=== PATIENT | female | born 1985 | race Caucasian/White ===

== ENCOUNTER 2018-07-05 00:04 | Inpatient (IN) | payer BC, SELFPAY ==
[~2018-07-05 00:04] MED LIST: Acetaminophen 325 MG Tab PO PRN
[2018-07-05] MEDS ORDERED: Nalbuphine 10 MG/1 ML Vial IM PRN (00:09)
[2018-07-05] MEDS ORDERED: Nalbuphine 10 MG/1 ML Vial IV PRN (00:09)
[2018-07-05] MEDS ORDERED: fentaNYL 100 MCG/2 ML SDV IVPUSH PRN (00:09)
[2018-07-05] MEDS ORDERED: Sodium Chloride 0.9% 10 ML Syringe FLUSH PRN (00:10)
[2018-07-05] MEDS ORDERED: Carboprost Tromethamine 250 MCG/1 ML Amp IM PRN (00:11)
[2018-07-05] MEDS ORDERED: hydrOXYzine HCl 25 MG Tab PO PRN (00:11)
[2018-07-05] MEDS ORDERED: Acetaminophen 325 MG Tab PO PRN (00:11)
[2018-07-05] MEDS ORDERED: Methylergonovine 0.2 MG/1 ML Amp IM PRN (00:12)
[2018-07-05] MEDS ORDERED: Misoprostol 400 MCG (4 X 100 MCG TAB) RECTAL PRN (00:12)
[2018-07-05] MEDS ORDERED: Lidocaine 1% 30 ML SDV INJECT PRN (00:12)
[2018-07-05] MEDS ORDERED: Tranexamic Acid 1,000 MG in Sodium Chloride 0.9% 100 ML IV PRN (00:13)
[2018-07-05] MEDS ORDERED: Lactated Ringers 500 ML IV ONE (00:15)
[2018-07-05] MEDS: Misoprostol 25 MCG (1/4 of 100 MCG) Tab VAG PRN ×3 (01:04→08:33)
[2018-07-05] MEDS: Oxytocin/Normal Saline 30 UNIT/500 ML BAG IV SCH (12:31)
[2018-07-05] MEDS: Lactated Ringers 1,000 ML IV SCH ×2 (12:31→18:02)
--- NOTE | 2018-07-05 14:57 | HP ---
CHIEF COMPLAINT: Induction of labor. HISTORY OF PRESENT ILLNESS: The patient is a 33-year-old, 2, para 0-0-1 - 0, presenting at 39 weeks and 4 days' gestation, who is presenting for induction of labor. The patient was seen in clinic by Dr. Levine yesterday on 07/04/2018 and was noted to have increasing pressure and [place] Santos contractions. She was also noted to have increasingly elevated blood pressure, proteinuria, and worsening lower extremity edema, meeting criteria for gestational hypertension and possible mild preeclampsia. At that time, induction of labor was discussed and agreed upon. Patient presented early this morning for induction of labor. She endorses positive movement, continued [place] Santos-like contractions, increasing pressure, and continued leg edema. The patient denies leakage of fluid or vaginal bleeding. The patient does endorse increased in intensity and frequency of cramping and back pain. First dose of Cytotec was given at 0100 hours, second Cytotec was given at 0500 hours, and third Cytotec was placed at 0840. The patient has no other concerns or questions at this time. The patient is A-positive blood type, GBS-positive, and rubella immune. HISTORY: 1. History of miscarriage in first trimester. 2. Current . PAST MEDICAL HISTORY: 1. Chronic anxiety. 2. Chronic posterior anal fissure. 3. Irritable bowel syndrome. PAST SURGICAL HISTORY: 1. Bilateral breast reduction in 2004. 2. Ankle surgery. 3. [place] teeth extraction. FAMILY HISTORY: 1. The patient's father had high cholesterol. 2. Two patient's paternal grandmother had cancer. 3. The patient's paternal grandfather had high cholesterol and history of stroke. 4. The patient's maternal aunt has history of cervical cancer. No other contributing significant family history noted. SOCIAL HISTORY: The patient has history of intermittent smoking and alcohol use. Has not used during . 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 Significant other is involved. CURRENT MEDICATIONS: vitamin, venlafaxine, adult fiber. ALLERGIES: Allergies to cat dander and seasonal allergies. REVIEW OF SYSTEMS: General: History of anxiety, well controlled. HEENT: Normal. Cardiovascular: No palpitations, chest pain. Pulmonary: No shortness of breath or history of asthma. Abdomen: History of IBS. No other concerns. Extremities: Increased lower extremity edema in . OBJECTIVE: Vital Signs: Temp 97.0, HR 80 b.p.m., BP 160/96, RR 18 breaths per minute. HEENT: Grossly normal. Cardiovascular: Regular rate and rhythm. No murmurs noted. Pulmonary: Lungs clear to auscultation bilaterally. Abdomen: Soft, nontender, normoactive bowel sounds, gravid uterus palpated 40 cm above the umbilicus. Extremities: Trace ankle swelling noted bilaterally. No tenderness to palpation of calves bilaterally. Skin: No rashes or bruising noted. Neurologic: Cranial nerves 2 through 12 intact. Grossly normal. ADMISSION LAB RESULTS: Hematology: WBC 11.3, RBC 4.38, HGB 11.3, HCT 35.3, and platelet count of 399. Chemistry: BUN 19, creatinine 0.7, uric acid 5.7, AST 22, ALT 13, lactate dehydrogenase 168. Urinalysis, color yellow, appearance slightly cloudy, pH 6.5, specific gravity 1.030, protein 100, glucose negative, ketones negative, occult blood small, nitrate negative, bilirubin negative, urobilinogen 0.2, leukocyte esterase trace, random creatinine 233, random total protein 79, protein to creatinine ratio 0.33. ASSESSMENT: The patient is a 33-year-old, 2, para 0-0-1-0, presenting at 39 weeks and 4 days' gestation for induction of labor. PLAN: 1. Induction of labor with Cytotec. 2. Three doses of Cytotec have been given. Cervical change has been noted with cervix noted to be dilated at 1.5 cm, 80% effaced, and vertex, and -2 station. 3. Continue expectant augmentation of labor and continue routine antepartum cares. The patient was seen and evaluated today by myself and Dr. Emily Levine. Assessment and plan are under advisement of Dr. Levine. -Steffi Meyers MS-III [facility] /[id number] Patient was personally seen and examined with the medical student. I reviewed the noted scribed on my behalf and necessary changes have been made to reflect my opinion on the history, exam, assessment, and plan. Emily Levine MD [facility]
[2018-07-05] MEDS: Ondansetron 4 MG/2 ML SDV IV PRN ×2 (16:10→20:09)
[2018-07-05] MEDS ORDERED: EPINEPHrine 1 MG/ML SDV ONE ×2 (16:16→20:13)
[2018-07-05] MEDS ORDERED: fentaNYL 100 MCG/2 ML SDV ONE ×2 (16:16→20:12)
[2018-07-05] MEDS ORDERED: Sodium Bicarbonate 4.2% 2.5 MEQ/5 ML SDV ONE ×2 (16:16→20:13)
--- NOTE | 2018-07-05 16:39 | PCM.SN ---
- Free Text/Narrative Note: Intrathecal. Sitting position, sterile prep and drape. 1% lidocaine with bicarb for skinwheal to L2 L3 interspace, introducer, 24 ga pencan x 2. Pos CSF, neg heme, neg parasthesia. 20 mcg pf sufenta, 0.1 ml pf 1;1000 epi, 0.4 ml pf NS, 30 mcg pf fentanyl and 6 mg of 0.75 % pf bupivacaine injected after CSF aspiration. Pt to L lateral position. Procedure time 1615 to 1645
--- NOTE | 2018-07-05 20:32 | PCM.SN ---
- Free Text/Narrative Note: Intrathecal. Sitting position, sterile prep and drape. 1% lidocaine with bicarb for skinwheal to L2 L3 interspace, introducer, 24 ga pencan x 1. Pos CSF, neg heme, neg parasthesia. 20 mcg pf sufenta, 0.1 ml pf 1;1000 epi, 0.4 ml pf NS, 30 mcg pf fentanyl and 6 mg of 0.75 % pf bupivacaine injected after CSF aspiration. Pt to L lateral position. Procedure time 2014 to 2044
[2018-07-06] MEDS: Lactated Ringers 1,000 ML IV SCH (00:26)
[2018-07-06] MEDS ORDERED: ceFAZolin 2 GM in Premix Bag 1 BAG IV ONE (00:37)
[2018-07-06] MEDS: Oxytocin/Normal Saline 30 UNIT/500 ML BAG IV SCH (00:41)
--- NOTE | 2018-07-06 00:47 | PCM.DEL ---
L & D Note - General Info Date of Service: 07/06/18 Mother's Due Date: 07/08/18 - Delivery Note Labor: Augmented by ARM, Augmented by Oxytocin Cervical Ripening Method: Misoprostil Delivery Outcome: Livebirth Infant Delivery Method: Spontaneous Vaginal Delivery-Single Delivery Mode: Vacuum Extraction Presentation: Left Occiput Anterior (FRAN) Nuchal Cord: None Prep: Other Anesthesia Type: Intrathecal (x2), Local Anesthetic: Lidocaine (Xylocaine) 1% Plain Local Anesthetic Volume: Other (10) Amniotic Fluid Description: Clear Episiotomy Type: None Laceration: 2nd Degree, Perineal Suture type: Vicryl Suture size: 3-0 Placenta: Manual Removal, Retained Cord: 3 Vessels Estimated Blood Loss: 400 [place]: Bulb Syringe, Stimulated, Warmed, [place] Used Provider: Emily Levine Score 1 min: 9 Score 5 min: 9 Post Delivery Events: Retained Placenta Delivery Comments (Free Text/Narrative):: 33-year-old presented for IOL for gestational hypertension and mild preeclampsia. Patient received 3 doses Cytotec for cervical ripening then pitocin was started for augmentation. After approximately 4 hours, AROM was performed for a small amount of clear fluid. Patient progressed to complete dilation after approximately 8 hours of pitocin. Patient was allowed to labor down for about an hour then pushed for 1 hour and 50 minutes. Due to maternal fatigue, a tang cup vacuum was applied. It was used for one contraction. There was one pop-off. Patient then pushed baby out without further assistance needed. Patient delivered a viable male weighing 7 pounds, 15 ounces with Apgars of 9 and 9 at 1 and 5 minutes respectively. Baby was placed on the mother's chest. Cord was clamped x2 and cut by father. Cord blood was collected. Placenta was allowed to spontaneously delivery for 23 minutes with the assistance of gentle uterine massage and gentle cord traction. After 23 minutes, more aggressive uterine massage and cord traction was attempted. This was again unsuccessful. Therefore, patient was given 100 mcg of IV Fentanyl and the placenta was manually removed after 2 attempts. Placenta was inspected and appeared to be intact. Uterus was manually explored and no large placental fragments were palpated. Uterine bleeding was noted to be brisk so bimanual massage was performed, pitocin was bolused and 800 mcg of Cytotec was given rectally. Bleeding was then noted to be appropriate. A second degree perineal laceration was repaired in the usual fashion. Bleeding was again checked and was noted to be appropriate. Patient tolerated the procedure well. Vacuum Extractor Progress Note - Alternative Labor Strategies Considered Alternative Labor Strategies Considered:: Reports: Yes Strategies Considered:: Reports: Contraction Intensity Adequate, Position Changes Used to Facilitate Rotation & Descent, Empty Bladder, Rest Indications Considered:: Reports: Yes Indications:: Reports: Shortening of 2nd Stage for Maternal Benefit, Suspicion of Immediate or Potential Compromise ( tachycardia) - Patient Prepared Patient Prepared:: Reports: Yes Informed Consent:: Reports: Verbal Risks: Reports: Yes Risks Include:: Reports: Laceration, Shoulder Dystocia, Maternal Injury Anesthesia/Analgesia Adequate:: Reports: Yes - Probability of Success High Probability of Success:: Reports: Yes Weight Estimated:: Reports: AGA Patient Diabetic:: Reports: No Pelvis Adequate:: Reports: Yes - Application Time Maximum Application Time & Number of Pop-Offs Predetermined:: Reports: Yes (3) Type of Vacuum Used:: Reports: Cup: Tang type Vacuum Extraction: Successful Comments:: Pulled with 1 contraction. There was one pop-off - Exit Strategy Exit strategy available:: Reports: Yes - General Info Date of Service: 07/06/18 - Patient Data Vitals - Most Recent: Last Vital Signs Temp 37.3 C 07/05/18 19:30 Pulse 76 07/05/18 20:00 Resp 20 07/05/18 20:00 BP 147/80 H 07/05/18 20:00 Pulse Ox 97 07/05/18 17:00 Weight - Most Recent: 106.594 kg Lab Results Last 24 Hours: Laboratory Results - last 24 hr 07/05/18 07/05/18 07/05/18 Range/Units 00:20 00:20 00:50 WBC 11.3 H (5.0-10.0) 10^3/uL RBC 4.38 (4.2-5.4) 10^6/uL Hgb 11.3 L (12.0-16.0) g/dL Hct 35.3 L (37.0-47.0) % MCV 80.6 (80-100) fL MCH 25.8 L (27.0-34.0) pg MCHC 32.0 L (33.0-35.0) g/dL Plt Count 399 (150-450) 10^3/uL BUN (7-18) mg/dL Creatinine (0.6-1.3) mg/dL Est Cr Clr Drug Dosing Estimated GFR (MDRD) Uric Acid (2.6-7.2) mg/dL AST (10-42) IU/L ALT (10-60) IU/L Lactate Dehydrogenase (91-180) IU/L Urine Color Yellow (YELLOW) Urine Appearance Slightly cloudy (CLEAR) Urine pH 6.5 (5.0-9.0) Ur Specific [place] >= 1.030 (1.005-1.030) Urine Protein 100 H (NEGATIVE) Urine Glucose (UA) Negative (NEGATIVE) Urine Ketones Negative (NEGATIVE) Urine Occult Blood Small H (NEGATIVE) Urine Nitrite Negative (NEGATIVE) Urine Bilirubin Negative (NEGATIVE) Urine Urobilinogen 0.2 (0.2-1.0) mg/dL Ur Leukocyte Esterase Trace H (NEGATIVE) Ur Random Creatinine 233 mg/dL U Random Total Protein 79 H (0.00-9.9) mg/dL Protein/Creatinin Ratio 0.33 04/04/19 Range/Units 00:50 WBC (5.0-10.0) 10^3/uL RBC (4.2-5.4) 10^6/uL Hgb (12.0-16.0) g/dL Hct (37.0-47.0) % MCV (80-100) fL MCH (27.0-34.0) pg MCHC (33.0-35.0) g/dL Plt Count (150-450) 10^3/uL BUN 19 H (7-18) mg/dL Creatinine 0.7 (0.6-1.3) mg/dL Est Cr Clr Drug Dosing TNP Estimated GFR (MDRD) > 60 Uric Acid 5.7 (2.6-7.2) mg/dL AST 22 (10-42) IU/L ALT 13 (10-60) IU/L Lactate Dehydrogenase 168 (91-180) IU/L Urine Color (YELLOW) Urine Appearance (CLEAR) Urine pH (5.0-9.0) Ur Specific [place] (1.005-1.030) Urine Protein (NEGATIVE) Urine Glucose (UA) (NEGATIVE) Urine Ketones (NEGATIVE) Urine Occult Blood (NEGATIVE) Urine Nitrite (NEGATIVE) Urine Bilirubin (NEGATIVE) Urine Urobilinogen (0.2-1.0) mg/dL Ur Leukocyte Esterase (NEGATIVE) Ur Random Creatinine mg/dL U Random Total Protein (0.00-9.9) mg/dL Protein/Creatinin Ratio Med Orders - Current: Current Medications Acetaminophen (Tylenol) 650 mg PO Q4H PRN PRN Reason: Pain/Fever Carboprost Tromethamine (Hemabate Ds) 250 mcg IM ASDIRECTED PRN PRN Reason: HEMORRHAGE Fentanyl (Sublimaze) 50 mcg IVPUSH Q1H PRN PRN Reason: Pain (moderate 4-6) Hydroxyzine HCl (Atarax) 50 mg PO BEDTIME PRN PRN Reason: Sleep Last Admin: 07/05/18 01:03 Dose: 50 mg Lactated Ringer's (Ringers, Lactated) 1,000 mls @ 125 mls/hr IV ASDIRECTED SANTHOSH Last Admin: 07/06/18 00:26 Dose: 125 mls/hr Tranexamic Acid 1,000 mg/ (Sodium Chloride) 110 mls @ 660 mls/hr IV ONETIME PRN PRN Reason: Bleeding Oxytocin/Sodium Chloride (Pitocin In Ns 30 Unit/500 Ml) 30 unit in 500 mls @ 2 mls/hr IV TITRATE SANTHOSH; Protocol Last Titration: 07/05/18 22:43 Dose: 24 munits/min, 24 mls/hr Lidocaine HCl (Xylocaine-Mpf 1%) 30 ml INJECT ASDIRECTED PRN PRN Reason: Perineal Repair Last Admin: 07/05/18 23:40 Dose: 30 ml Methylergonovine Maleate (Methergine) 0.2 mg IM ASDIRECTED PRN PRN Reason: Hemorrhage Misoprostol (Cytotec) 800 mcg RECTAL ASDIRECTED PRN PRN Reason: Hemorrhage Last Admin: 07/06/18 00:05 Dose: 800 mcg Misoprostol (Cytotec) 25 mcg VAG Q4H PRN PRN Reason: cervical ripening Last Admin: 07/05/18 08:33 Dose: 25 mcg Nalbuphine HCl (Nubain) 20 mg IM Q3H PRN PRN Reason: Pain Last Admin: 07/05/18 13:03 Dose: 20 mg Nalbuphine HCl (Nubain) 10 mg IV Q3H PRN PRN Reason: Pain Ondansetron HCl (Zofran) 4 mg IV Q4H PRN PRN Reason: Nausea/Vomiting Last Admin: 07/05/18 20:09 Dose: 4 mg Sodium Chloride (Saline Flush) 10 ml FLUSH ASDIRECTED PRN PRN Reason: Keep Vein Open Discontinued Medications Acetaminophen (Tylenol) 650 mg PO Q4H PRN PRN Reason: Pain (Mild 1-3) and fever Epinephrine HCl (Adrenalin) Confirm Administered Dose 1 mg .ROUTE .STK-MED ONE Stop: 07/05/18 16:17 Last Admin: 07/05/18 16:48 Dose: Not Given Epinephrine HCl (Adrenalin) Confirm Administered Dose 1 mg .ROUTE .STK-MED ONE Stop: 07/05/18 20:14 Fentanyl (Sublimaze) Confirm Administered Dose 100 mcg .ROUTE .STK-MED ONE Stop: 07/05/18 16:17 Last Admin: 07/05/18 16:49 Dose: Not Given Fentanyl (Sublimaze) Confirm Administered Dose 100 mcg .ROUTE .STK-MED ONE Stop: 07/05/18 20:13 Lactated Ringer's (Ringers, Lactated) 500 mls @ 999 mls/hr IV ONETIME ONE Stop: 07/05/18 00:45 Last Admin: 07/05/18 16:10 Dose: 999 mls/hr Sodium Bicarbonate (Sodium Bicarbonate 4.2%) Confirm Administered Dose 0.5 meq .ROUTE .STK-MED ONE Stop: 07/05/18 16:17 Last Admin: 07/05/18 16:48 Dose: Not Given Sodium Bicarbonate (Sodium Bicarbonate 4.2%) Confirm Administered Dose 0.5 meq .ROUTE .STK-MED ONE Stop: 07/05/18 20:14 Sufentanil Citrate (Sufenta) Confirm Administered Dose 50 mcg .ROUTE .STK-MED ONE Stop: 07/05/18 16:17 Last Admin: 07/05/18 16:49 Dose: Not Given Sufentanil Citrate (Sufenta) Confirm Administered Dose 50 mcg .ROUTE .STK-MED ONE Stop: 07/05/18 20:14 - Problem List & Annotations (1) care in third trimester SNOMED Code(s): 005337796, 32517803, 31599177, 056388086, 340141936 Code(s): Z34.93 - ENCNTR FOR SUPRVSN OF NORMAL PREG, UNSP, THIRD TRIMESTER Status: Acute Current Visit: Yes (2) Gestational hypertension SNOMED Code(s): 012513400, 706130011 Code(s): O13.9 - GESTATIONAL HTN W/O SIGNIFICANT PROTEINURIA, UNSP TRIMESTER Status: Acute Current Visit: Yes (3) Mild preeclampsia SNOMED Code(s): 07515959 Code(s): O14.00 - MILD TO MODERATE PRE-ECLAMPSIA, UNSPECIFIED TRIMESTER Status: Acute Current Visit: Yes (4) Status post vacuum-assisted vaginal delivery SNOMED Code(s): 356099620, 20378879290255462 Code(s): Z87.59 - PERSONAL HISTORY OF COMP OF PREG, CHLDBRTH AND THE PUERP Status: Acute Current Visit: Yes (5) Perineal laceration during delivery, delivered SNOMED Code(s): 573525798 Code(s): O70.9 - PERINEAL LACERATION DURING DELIVERY, UNSPECIFIED Status: Acute Current Visit: Yes (6) Retained placenta after delivery without hemorrhage but with other complication SNOMED Code(s): 157398893 Code(s): O73.0 - RETAINED PLACENTA WITHOUT HEMORRHAGE Status: Acute Current Visit: Yes - Problem List Review Problem List Initiated/Reviewed/Updated: Yes - My Orders Last 24 Hours: My Active Orders 07/05/18 00:09 Nalbuphine [Nubain] 10 mg IV Q3H PRN Nalbuphine [Nubain] 20 mg IM Q3H PRN fentaNYL [Sublimaze] 50 mcg IVPUSH Q1H PRN 07/05/18 00:10 Ondansetron [Zofran] 4 mg IV Q4H PRN Sodium Chloride 0.9% [Saline Flush] 10 ml FLUSH ASDIRECTED PRN 07/05/18 00:11 Acetaminophen [Tylenol] 650 mg PO Q4H PRN Carboprost Tromethamine [Hemabate DS] 250 mcg IM ASDIRECTED PRN hydrOXYzine HCl [Atarax] 50 mg PO BEDTIME PRN 07/05/18 00:12 Lidocaine 1% [Xylocaine-MPF 1%] 30 ml INJECT ASDIRECTED PRN Methylergonovine [Methergine] 0.2 mg IM ASDIRECTED PRN miSOPROStol [Cytotec] 25 mcg VAG Q4H PRN miSOPROStol [Cytotec] 800 mcg RECTAL ASDIRECTED PRN 07/05/18 00:13 Tranexamic Acid [Cyklokapron] 1,000 mg Sodium Chloride 0.9% [Normal Saline] 100 ml IV ONETIME 07/05/18 00:15 Lactated Ringers [Ringers, Lactated] 1,000 ml IV ASDIRECTED Oxytocin/Normal Saline [Pitocin in NS 30 UNIT/500 ML] 30 unit in 500 ml IV TITRATE 07/05/18 18:37 Communication Order [RC] ROUTINE 07/05/18 Breakfast Regular Diet [DIET] - Assessment Assessment:: 33-year-old now status post VAVD and manual removal of placenta - Plan Plan:: 1. Initiate routine cares 2. Closely monitor bleeding 3. Mother plans to breastfeed. consultation placed. 4. 2 grams Ancef x1 for infection prophylaxis 5. Anticipate discharge 07/07/18 Emily Levine MD
[2018-07-06] MEDS ORDERED: Tranexamic Acid 1,000 MG in Sodium Chloride 0.9% 100 ML IV PRN (03:46)
[2018-07-06] MEDS ORDERED: Carboprost Tromethamine 250 MCG/1 ML Amp IM PRN (03:46)
[2018-07-06] MEDS ORDERED: Simethicone 80 MG Tab.Chew PO PRN (03:46)
[2018-07-06] MEDS ORDERED: Oxytocin 10 Units/1 ML SDV IM PRN (03:46)
[2018-07-06] MEDS ORDERED: Sodium Chloride 0.9% 10 ML Syringe FLUSH PRN (03:46)
[2018-07-06] MEDS ORDERED: Benzocaine/Menthol 20%-0.5% Spray 56 GM Canister TOP PRN (03:46)
[2018-07-06] MEDS ORDERED: Zolpidem 5 MG Tab PO PRN (03:46)
[2018-07-06] MEDS ORDERED: Misoprostol 400 MCG (4 X 100 MCG TAB) RECTAL PRN (03:46)
[2018-07-06] MEDS: Acetaminophen 325 MG Tab PO PRN ×3 (04:11→21:00)
[2018-07-06] MEDS: Ibuprofen 800 MG Tab PO PRN ×3 (04:11→20:59)
[2018-07-06] MEDS ORDERED: fentaNYL 100 MCG/2 ML SDV IVPUSH ONE (08:33)
[2018-07-06] MEDS: Prenatal Multivitamin with Calcium/Folic Acid/Iron Tab PO SCH (08:53)
[2018-07-06] MEDS: Docusate Sodium 100 MG Cap PO PRN ×2 (08:53→21:00)
--- NOTE | 2018-07-06 13:06 | PN ---
DATE: 07/06/2018 SUBJECTIVE: The patient is a 33-year-old 2, para 0-0-1-0, who presented for induction of labor on 07/05/2018 at 39 weeks 4 days' gestation with mild preeclampsia. The patient delivered a term female infant via vacuum assisted vaginal delivery. The patient also experienced a second-degree perineal laceration along with necessity for manual removal of retained placental parts. Overnight, patient is doing well. The patient endorses feeling very sore, tolerating activity, tolerating general diet, urinating, and passing flatus. Patient's Zimmerman was cold at 0600. The patient denies headaches, blurred vision, chest pain, or shortness of breath. The patient has no other concerns at this time. OBJECTIVE: Vital Signs: Temp 98.2, HR 96 BPM; BP 163/85, RR 18 breaths per minute. General: Awake and alert, in no acute distress. HEENT: Grossly normal. Cardiovascular: Regular rate and rhythm. No murmurs noted. Pulmonary: Lungs are clear to auscultation bilaterally. Abdomen: Soft, nondistended, normoactive bowel sounds. Tender in lower abdomen with uterus palpated at the umbilicus. Extremities: +1 pedal edema noted in ankles bilaterally. No tenderness to calf palpation bilaterally. Neurologic: Grossly normal. LABORATORY DATA: Recent lab results: Hematology: WBC 23.5, RBC 4.08, hemoglobin 10.6, hematocrit 32.9, platelet count 342. ASSESSMENT: The patient is a 33-year-old 2, para 0-0-1-0, presenting for day #1 from a vacuum assisted vaginal delivery. PLAN: 1. Continue routine cares. 2. . 3. Continue closely monitoring vaginal bleeding due to manual extraction of placental parts. The patient is currently doing well. 4. WBC count elevated. Will repeat tomorrow. No further antibiotics at this time. The patient was seen and evaluated today by myself and Dr. Emily Levine. Assessment and plan are under advisement of Dr. Levine. [facility] /[id number] Patient was personally seen and examined with the medical student. I reviewed the noted scribed on my behalf and necessary changes have been made to reflect my opinion on the history, exam, assessment, and plan. Emily Levine MD [facility]
[2018-07-07] MEDS: Ibuprofen 800 MG Tab PO PRN (08:24)
[2018-07-07] MEDS: Prenatal Multivitamin with Calcium/Folic Acid/Iron Tab PO SCH (09:20)
[2018-07-07] MEDS ORDERED: Sodium Bicarbonate 4.2% 2.5 MEQ/5 ML SDV ONE (12:59)
[2018-07-07] MEDS ORDERED: fentaNYL 100 MCG/2 ML SDV ITHECAL ONE (12:59)
--- NOTE | 2018-07-08 10:12 | DISCH ---
ADMITTING DIAGNOSES: 1. Intrauterine at 39 weeks and 4 days' gestation. 2. 2, para 0-0-1-0. 3. Admission for induction of labor. 4. Preeclampsia in . 5. Gestational hypertension. 6. A positive, Group B streptococcus positive, rubella immune. DISCHARGE DIAGNOSES: 1. Intrauterine at 39 weeks and 4 days' gestation. 2. 2, now para 1-0-1-1. 3. Admission for induction of labor. 4. Preeclampsia in . 5. Gestational hypertension. 6. A positive, Group B streptococcus positive, rubella immune. 7. Second-degree perineal laceration repaired. 8. Retained placenta necessitating manual extraction. 9. Vacuum-assisted vaginal delivery. BRIEF HISTORY: The patient is a 33-year-old, 2, now para 1-0-1-1, who presented at 39 weeks and 4 days' gestation for induction of labor due to recent diagnosis of mild preeclampsia and gestational hypertension. The patient was seen in clinic by Dr. Levine the day prior and was noted to have increasing pressure and [place] contractions. She is also complaining of worsening lower extremity edema. At that time, she was diagnosed with preeclampsia and gestational hypertension. She presented to Labor and Delivery on 07/05/2018, for induction of labor with Cytotec. With Cytotec, labor progressed expectantly. The patient did undergo artificial rupture of membranes, and she received 2 intrathecal anesthetic doses. Stage I of labor was about 8 hours with check after 8 hours noticing that she was complete at that time. The patient was allowed to labor down and stage II of labor was noted to be about 1 hour and 50 minutes. The patient was noticed to have stalled progression through canal, so vacuum assistance was needed to pass the pubic bone. Vacuum was used for one push total, and the patient was able to complete the birthing process on her own. After delivery, the patient was stimulated, dried and placed on mother's chest for [id number] and initiation of . Delayed cord clamping occurred with father of the baby cutting the cord. A second-degree perineal laceration was visualized and repaired. Delivery of placenta was prolonged and placenta was noted to be adhered to uterine fundus, necessitating manual extraction of retained placenta. Please see delivery note for further details. HOSPITAL COURSE: Good. After delivery, the patient was noted to be sore after delivery. She was able to ambulate well, urinate well, and tolerate general diet. The patient has utilized bath for pain and soreness. The patient has had slightly elevated blood pressures ranging in the 140s/70s. The patient also endorses continued lower extremity swelling, which is resolving. The patient denies any headaches, blurred vision, dizziness or lightheadedness, shortness of breath, chest pain, abdominal pain, or tender calves bilaterally. The patient has no concerns at this time and has been working on initiating breast-feeding. Please see progress notes for further details. DISCHARGE CONDITION: Good. DISCHARGE PHYSICAL EXAMINATION: Vital Signs: Temperature 97.3, HR 84 bpm, BP 143/96, RR 60 breaths per minute, and O2 saturation 99% on room air. General: Awake, alert, in no acute distress. HEENT: Grossly normal. Cardiovascular: Regular rate and rhythm. No murmurs noted. Pulmonary: Lungs are clear to auscultation bilaterally. Abdomen: Soft, nontender, slightly distended. Normoactive bowel sounds. Uterine fundus palpated 1 cm below the umbilicus. Extremities: 1+ lower extremity edema noted. No tenderness to palpation of calves bilaterally. Neurologic: Grossly normal. LABORATORY DATA: Hematology: 1. WBC 15.9. 2. RBC 3.77. 3. Hemoglobin 9.9. 4. Hematocrit 31.0. 5. Platelet count 332. DISCHARGE MEDICATIONS: None prescribed. DISPOSITION: Home with family. FOLLOWUP: The patient was advised to follow up with Dr. Emily Levine on 07/09/2018. Questions were answered, and the patient is in agreement with this plan. Discharge evaluation was completed by myself and Dr. Harriet Wiley. Assessment and plan are under advisement of Dr. Harriet Wiley. -Steffi Meyers MS-III [facility] /[id number] Patient seen and examined. Agree with note as scribed on my behalf by Steffi Meyers MS3. -[facility] 07/17/18 1626. BRIAND
== END 2018-07-07 13:00 | disposition home or self-care (01) | DRG 560 ==
LOC: DL.OB 00:04 → OBSVTOIN 23:35
PROVIDERS: ADMIT Family Medicine; ATTEND Family Medicine
PROC: 10D07Z6 Extraction of Products of Conception, Vacuum, Via Natural or Artificial Opening (ICD-10-PCS; principal; 2018-07-05)
PROC: 0KQM0ZZ Repair Perineum Muscle, Open Approach (ICD-10-PCS; 2018-07-05)
PROC: 3E0P7VZ Introduction of Hormone into Female Reproductive, Via Natural or Artificial Opening (ICD-10-PCS; 2018-07-05)
PROC: 10907ZC Drainage of Amniotic Fluid, Therapeutic from Products of Conception, Via Natural or Artificial Opening (ICD-10-PCS; 2018-07-05)
PROC: 3E0R3BZ Introduction of Anesthetic Agent into Spinal Canal, Percutaneous Approach (ICD-10-PCS; 2018-07-05)
DX: O14.03 Mild to moderate pre-eclampsia, third trimester (principal); Z3A.39 39 weeks gestation of pregnancy; Z37.0 Single live birth; O13.3 Gestational [pregnancy-induced] hypertension without significant proteinuria, third trimester; O99.820 Streptococcus B carrier state complicating pregnancy; O70.1 Second degree perineal laceration during delivery; O73.0 Retained placenta without hemorrhage
CPT/HCPCS: 36415; 51702; 59025; 59409; 81003; 82565; 82570; 83615; 84156; 84450; 84460; 84520; 84550; 85027; A9270-GY; J0690; J2001; J2300; J2405; J2590; J3010; J7120